=== PATIENT | male | born 1995 | race Caucasian/White ===

== ENCOUNTER 2017-09-10 14:54 | Inpatient (IN) | payer OTHER ==
[~2017-09-10] VITALS: Ht 172.7 cm; Wt 65.8 kg
[2017-09-10 14:55] VITALS: BP 117/64
[2017-09-10 15:22] LABS: HEMATOCRIT 38.3 % (36-52); HEMOGLOBIN 12.5 g/dL (12.0-18.0); MEAN CORPUSCULAR HEMOGLOBIN 28 pg (27-31); MEAN CORPUSCULAR HGB CONC 33 g/dL (33-37); PLATELET COUNT (AUTO) 331 K/uL (140-450); RED BLOOD CELL COUNT(AUTO) 4.46 MIL/uL (4.20-6.10); RED CELL DISTRIBUTION WIDTH 15.4 % (11.6-13.7); WHITE BLOOD COUNT (AUTO) 19.2 K/uL (4.8-10.8)
[2017-09-10] MEDS ORDERED: AMLO5TAB PO (15:26)
[2017-09-10] MEDS ORDERED: TRAZ-286 PO (15:26)
[2017-09-10] MEDS ORDERED: GABA300C PO (15:26)
[2017-09-10] MEDS ORDERED: QUET300T1 PO (15:26)
[2017-09-10] MEDS ORDERED: BUPR-160 PO (15:26)
[2017-09-10] MEDS ORDERED: [UNRECOGNIZED DRUG - CODE] PO (15:26)
[2017-09-10] MEDS ORDERED: DOXY100C9 PO (15:26)
[2017-09-10 15:30] LABS: ANION GAP 19.1 (8-16); CARBON DIOXIDE 22.3 mmol/L (21-32); CHLORIDE 100 mmol/L (98-107); GFR ARICAN-AMERICAN 118 mL/min (>90); GLUCOSE 72 mg/dL (74-106); POTASSIUM 4.4 mmol/L (3.5-5.1); SODIUM SERUM 137 mmol/L (136-145); UREA NITROGEN, BLOOD 24 mg/dL (7-18)
[2017-09-10 15:35] LABS: ALBUMIN 4.2 g/dL (3.4-5.0); ASPARTATE AMINOTRANSFERASE 19 U/L (15-37); TOTAL BILIRUBIN 0.7 mg/dL (0.0-1.0)
[2017-09-10 15:37] LABS: ACETAMINOPHEN < 0.5 ug/ml (10-30); SALICYLATE < 2.8 mg/dL (2.8-20.0)
[2017-09-10 15:42] LABS: LYMPHOCYTES % (MANUAL) 6 % (20-46); MONOCYTES % (MANUAL) 4 % (5-12)
[2017-09-10 15:52] LABS: BARBITURATE, URINE NEG. ng/ml (NEG <=200); BENZODIAZEPINE, URINE NEG. ng/mL (NEG <=200); CANNABINOID, URINE POS. ng/mL (NEG <=50); COCAINE, URINE NEG. ng/mL (NEG <=300); OPIATE, URINE NEG. ng/mL (NEG <=2000); PHENCYCLIDINE SCREEN,URINE NEG. ng/mL (NEG <=25)
[2017-09-10 17:20] LABS: BASOPHILS # (AUTO) 0.1 K/uL (0.00-0.22); BASOPHILS % (AUTO) 0.4 % (0.0-2.0); EOSINOPHILS % (AUTO) 0.1 % (0.0-4.0); HEMATOCRIT 40.2 % (36-52); HEMOGLOBIN 12.9 g/dL (12.0-18.0); LYMPHOCYTES # (AUTO) 1.3 K/uL (2.0-11.5); LYMPHOCYTES % (AUTO) 6.6 % (20.5-51.1); MEAN CORPUSCULAR HEMOGLOBIN 28 pg (27-31); MEAN CORPUSCULAR HGB CONC 32 g/dL (33-37); MEAN CORPUSCULAR VOLUME 86.4 fL (80-94); MONOCYTES # (AUTO) 0.9 K/uL (0.8-1.0); MONOCYTES % (AUTO) 4.8 % (1.7-9.3); NEUTROPHILS % (AUTO) 88.1 % (42.2-75.2); PLATELET COUNT (AUTO) 357 K/uL (140-450); RED BLOOD CELL COUNT(AUTO) 4.65 MIL/uL (4.20-6.10); RED CELL DISTRIBUTION WIDTH 15.3 % (11.6-13.7); WHITE BLOOD COUNT (AUTO) 19.3 K/uL (4.8-10.8)
[2017-09-10] MEDS ORDERED: LORazepam 2 MG/ML VIAL IM/IVP ONE (17:30)
[2017-09-10] MEDS ORDERED: traZODone 50 MG TAB PO PRN (19:00)
[2017-09-10] MEDS ORDERED: ONDANSETRON 4 MG/2 ML VIAL IVP PRN (19:00)
[2017-09-10] MEDS ORDERED: MULTIVITAMIN-12 10 ML, THIAMINE 100 MG, FOLIC ACID 1 MG, MAGNESIUM SULFATE 50% 2,000 MG... IV SCH ×5 (19:10)
[2017-09-10 20:00] VITALS: BP 113/66
[2017-09-10] MEDS: HYDROcodone/APAP 5/325 MG 1 TAB TAB PO PRN (20:47)
[2017-09-10] MEDS: LORazepam 2 MG/ML VIAL IVP PRN (20:48)
[2017-09-10] MEDS ORDERED: MULTIVITAMIN-12 10 ML VIAL IV ONE (21:29)
[2017-09-10] MEDS ORDERED: THIAMINE 200 MG/2 ML VIAL ONE (21:38)
[2017-09-10] MEDS ORDERED: FOLIC ACID 5 MG/ML SYR ONE (21:43)
[2017-09-10] MEDS ORDERED: MAGNESIUM SULFATE 50% 1000 MG/2 ML VIAL IV ONE (21:44)
[2017-09-10 23:18] VITALS: BP 113/66
[2017-09-11] VITALS: BP 106/62
[2017-09-11] MEDS: LORazepam 2 MG/ML VIAL IVP PRN (01:52)
[2017-09-11 04:00] VITALS: BP 110/62
[2017-09-11] MEDS: HYDROcodone/APAP 5/325 MG 1 TAB TAB PO PRN (04:00)
[2017-09-11 06:38] LABS: ANION GAP 9.6 (8-16); CARBON DIOXIDE 27.2 mmol/L (21-32); POTASSIUM 3.8 mmol/L (3.5-5.1)
[2017-09-11 06:39] LABS: ALBUMIN 3.6 g/dL (3.4-5.0); MAGNESIUM 2.5 mg/dL (1.8-2.4); TOTAL BILIRUBIN 0.6 mg/dL (0.0-1.0)
[2017-09-11 06:55] LABS: BASOPHILS # (AUTO) 0.2 K/uL (0.00-0.22); BASOPHILS % (AUTO) 2.4 % (0.0-2.0); EOSINOPHILS # (AUTO) 0.1 K/uL (0-0.4); EOSINOPHILS % (AUTO) 1.4 % (0.0-4.0); HEMATOCRIT 37.5 % (36-52); HEMOGLOBIN 12.9 g/dL (12.0-18.0); LYMPHOCYTES # (AUTO) 1.2 K/uL (2.0-11.5); LYMPHOCYTES % (AUTO) 12.3 % (20.5-51.1); MEAN CORPUSCULAR HEMOGLOBIN 30 pg (27-31); MEAN CORPUSCULAR HGB CONC 34 g/dL (33-37); MEAN CORPUSCULAR VOLUME 86.9 fL (80-94); MONOCYTES # (AUTO) 1.4 K/uL (0.8-1.0); MONOCYTES % (AUTO) 14.1 % (1.7-9.3); NEUTROPHILS # (AUTO) 6.8 K/uL (1.8-7.7); NEUTROPHILS % (AUTO) 69.8 % (42.2-75.2); PLATELET COUNT (AUTO) 301 K/uL (140-450); RED BLOOD CELL COUNT(AUTO) 4.32 MIL/uL (4.20-6.10); RED CELL DISTRIBUTION WIDTH 14.6 % (11.6-13.7); WHITE BLOOD COUNT (AUTO) 9.7 K/uL (4.8-10.8)
[2017-09-11 08:00] VITALS: BP 129/81
[2017-09-11] MEDS: amLODIPine 5 MG TAB PO SCH (08:22)
[2017-09-11] MEDS: risperiDONE 1 MG TAB PO SCH (08:22)
[2017-09-11] MEDS ORDERED: GABAPENTIN 100 MG CAP PO SCH (09:00)
[2017-09-11] MEDS ORDERED: GABAPENTIN 300 MG CAP PO SCH (09:00)
[2017-09-11] MEDS ORDERED: RISPERIDONE 1 MG PO SCH (09:00)
[2017-09-11] MEDS ORDERED: QUEtiapine FUMARATE 100 MG TAB PO SCH ×2 (09:00→21:00)
[2017-09-11] MEDS ORDERED: GABAPENTIN 100 MG CAP PO PRN (09:25)
[2017-09-11 12:00] VITALS: BP 118/77
[2017-09-11] MEDS: LORazepam 1 MG TAB PO PRN (12:40)
[2017-09-11] MEDS ORDERED: traMADol 50 MG TAB PO PRN (14:45)
[2017-09-12] VITALS: BP 112/63
[2017-09-12 07:33] LABS: BASOPHILS # (AUTO) 0.2 K/uL (0.00-0.22); BASOPHILS % (AUTO) 1.6 % (0.0-2.0); EOSINOPHILS # (AUTO) 0.1 K/uL (0-0.4); EOSINOPHILS % (AUTO) 1.1 % (0.0-4.0); HEMATOCRIT 43.1 % (36-52); HEMOGLOBIN 14.1 g/dL (12.0-18.0); LYMPHOCYTES # (AUTO) 1.1 K/uL (2.0-11.5); LYMPHOCYTES % (AUTO) 9.4 % (20.5-51.1); MEAN CORPUSCULAR HEMOGLOBIN 29 pg (27-31); MEAN CORPUSCULAR HGB CONC 33 g/dL (33-37); MEAN CORPUSCULAR VOLUME 87.7 fL (80-94); MONOCYTES # (AUTO) 0.7 K/uL (0.8-1.0); MONOCYTES % (AUTO) 6.5 % (1.7-9.3); NEUTROPHILS # (AUTO) 9.2 K/uL (1.8-7.7); NEUTROPHILS % (AUTO) 81.4 % (42.2-75.2); PLATELET COUNT (AUTO) 322 K/uL (140-450); RED BLOOD CELL COUNT(AUTO) 4.91 MIL/uL (4.20-6.10); RED CELL DISTRIBUTION WIDTH 14.9 % (11.6-13.7); WHITE BLOOD COUNT (AUTO) 11.3 K/uL (4.8-10.8)
[2017-09-12] MEDS: ACETAMINOPHEN 325 MG TAB PO PRN ×2 (07:37→16:02)
[2017-09-12 07:50] LABS: ALBUMIN 4.1 g/dL (3.4-5.0); ANION GAP 15.1 (8-16); CARBON DIOXIDE 24.8 mmol/L (21-32); CREATININE 2.2 mg/dL (0.7-1.3); POTASSIUM 3.9 mmol/L (3.5-5.1); TOTAL BILIRUBIN 0.3 mg/dL (0.0-1.0)
[2017-09-12 08:03] VITALS: BP 117/72
[2017-09-12] MEDS: amLODIPine 5 MG TAB PO SCH ×2 (08:43→09:50)
[2017-09-12] MEDS: risperiDONE 1 MG TAB PO SCH ×2 (08:44→09:50)
[2017-09-12] MEDS: LORazepam 1 MG TAB PO PRN (10:56)
[2017-09-12] MEDS ORDERED: NICOTINE TRANSD SYS 21 MG/24 HR PATCH TD SCH (11:20)
[2017-09-12 12:00] VITALS: BP 103/62
[2017-09-13] MEDS ORDERED: NICOTINE TRANSD SYS 21 MG/24 HR PATCH TD SCH (09:00)
== END 2017-09-12 18:00 | disposition left against medical advice (07) | DRG 770 ==
LOC: MED 14:54 → MTU 18:59
PROVIDERS: ADMIT Hospitalist; ATTEND Hospitalist
DX: F10.129 Alcohol abuse with intoxication, unspecified (principal); R45.851 Suicidal ideations; G62.9 Polyneuropathy, unspecified; F20.0 Paranoid schizophrenia; I10 Essential (primary) hypertension; F15.10 Other stimulant abuse, uncomplicated; F31.9 Bipolar disorder, unspecified; F12.10 Cannabis abuse, uncomplicated; F17.210 Nicotine dependence, cigarettes, uncomplicated; Y90.1 Blood alcohol level of 20-39 mg/100 ml; F41.9 Anxiety disorder, unspecified; D72.828 Other elevated white blood cell count; Z53.21 Procedure and treatment not carried out due to patient leaving prior to being seen by health care provider; Z88.0 Allergy status to penicillin; Z79.899 Other long term (current) drug therapy; Z59.0 Homelessness
CPT/HCPCS: 36415; 80053; 80305; 83735; 84100; 85025; 87081; 93005; 96372; 99285; A9153; G0480; G0482; J2060; J3411; J3475; J3490; J7030

== ENCOUNTER 2017-09-12 21:35 | Inpatient (IN) | payer OTHER ==
[~2017-09-12] VITALS: Ht 165.1 cm; Wt 59.0 kg
[~2017-09-12 21:35] MED LIST: AMLO5TAB PO; BUPR-160 PO; DOXY100C9 PO; GABA300C PO; QUET300T1 PO; TRAZ-286 PO; [UNRECOGNIZED DRUG - CODE] PO
[2017-09-12] MEDS ORDERED: NALOXONE 0.4 MG/ML VIAL ONE (21:38)
[2017-09-12 21:39] VITALS: BP 134/75
[2017-09-12] MEDS ORDERED: ONDANSETRON 4 MG/2 ML VIAL ONE (21:43)
[2017-09-12] MEDS ORDERED: FLUMAZENIL 0.5 MG/5 ML VIAL IVP ONE (21:43)
[2017-09-12] MEDS ORDERED: ONDANSETRON 4 MG/2 ML VIAL IVP ONE (21:45)
[2017-09-12] MEDS ORDERED: NALOXONE 0.4 MG/ML VIAL IVP ONE (21:45)
[2017-09-12] MEDS ORDERED: NACL 0.9% 2,000 ML IV ONE (21:45)
[2017-09-12 21:59] LABS: BASOPHILS # (AUTO) 0.2 K/uL (0.00-0.22); BASOPHILS % (AUTO) 1.3 % (0.0-2.0); EOSINOPHILS % (AUTO) 0.2 % (0.0-4.0); HEMATOCRIT 44.9 % (36-52); HEMOGLOBIN 14.3 g/dL (12.0-18.0); LYMPHOCYTES # (AUTO) 1.3 K/uL (2.0-11.5); LYMPHOCYTES % (AUTO) 8.7 % (20.5-51.1); MEAN CORPUSCULAR HEMOGLOBIN 28 pg (27-31); MEAN CORPUSCULAR HGB CONC 32 g/dL (33-37); MEAN CORPUSCULAR VOLUME 86.9 fL (80-94); MONOCYTES # (AUTO) 0.8 K/uL (0.8-1.0); MONOCYTES % (AUTO) 5.1 % (1.7-9.3); NEUTROPHILS % (AUTO) 84.7 % (42.2-75.2); PLATELET COUNT (AUTO) 339 K/uL (140-450); RED BLOOD CELL COUNT(AUTO) 5.16 MIL/uL (4.20-6.10); RED CELL DISTRIBUTION WIDTH 14.8 % (11.6-13.7); WHITE BLOOD COUNT (AUTO) 15.3 K/uL (4.8-10.8)
[2017-09-12 22:05] LABS: APPEARANCE,URINE CLEAR (CLEAR); BILIRUBIN,URINE NEGATIVE (NEGATIVE); BLOOD, URINE NEGATIVE (NEGATIVE); LEUKOCYTE ESTERASE ,URINE NEGATIVE (NEGATIVE); NITRITE, URINE NEGATIVE (NEGATIVE); PH,URINE 5.5 (5.0-9.0); UGLUCOSE NEGATIVE (NEGATIVE)
[2017-09-12 22:06] LABS: COLOR,URINE STRAW (YELLOW)
[2017-09-12 22:11] LABS: ANION GAP 13.5 (8-16); CARBON DIOXIDE 27.8 mmol/L (21-32); CHLORIDE 106 mmol/L (98-107); CREATININE 1.6 mg/dL (0.7-1.3); GFR ARICAN-AMERICAN 69 mL/min (>90); GLUCOSE 126 mg/dL (74-106); POTASSIUM 3.3 mmol/L (3.5-5.1); SODIUM SERUM 144 mmol/L (136-145); UREA NITROGEN, BLOOD 19 mg/dL (7-18)
[2017-09-12 22:12] LABS: BARBITURATE, URINE NEG. ng/ml (NEG <=200); BENZODIAZEPINE, URINE NEG. ng/mL (NEG <=200); CANNABINOID, URINE NEG. ng/mL (NEG <=50); COCAINE, URINE NEG. ng/mL (NEG <=300); OPIATE, URINE NEG. ng/mL (NEG <=2000); PHENCYCLIDINE SCREEN,URINE NEG. ng/mL (NEG <=25)
[2017-09-12 22:17] LABS: ALBUMIN 4.3 g/dL (3.4-5.0); ASPARTATE AMINOTRANSFERASE 21 U/L (15-37); SALICYLATE 2.8 mg/dL (2.8-20.0); TOTAL BILIRUBIN 0.2 mg/dL (0.0-1.0)
[2017-09-12 22:18] LABS: ACETAMINOPHEN < 0.5 ug/ml (10-30)
[2017-09-12] MEDS ORDERED: NACL 0.9% 1,000 ML IV SCH (22:44)
[2017-09-12] MEDS ORDERED: LORazepam 1 MG TAB PO PRN ×2 (22:45)
[2017-09-12] MEDS ORDERED: ONDANSETRON 4 MG/2 ML VIAL IVP PRN (22:45)
[2017-09-13] MEDS ORDERED: cloNIDine 0.1 MG TAB PO SCH (05:00)
[2017-09-13] MEDS ORDERED: LORazepam 1 MG TAB PO SCH (05:00)
[2017-09-13 06:09] VITALS: BP 97/69
[2017-09-13 07:04] LABS: BASOPHILS # (AUTO) 0.3 K/uL (0.00-0.22); BASOPHILS % (AUTO) 2.2 % (0.0-2.0); EOSINOPHILS # (AUTO) 0.1 K/uL (0-0.4); EOSINOPHILS % (AUTO) 0.6 % (0.0-4.0); HEMATOCRIT 38.6 % (36-52); HEMOGLOBIN 12.7 g/dL (12.0-18.0); LYMPHOCYTES # (AUTO) 1.8 K/uL (2.0-11.5); LYMPHOCYTES % (AUTO) 15.9 % (20.5-51.1); MEAN CORPUSCULAR HEMOGLOBIN 29 pg (27-31); MEAN CORPUSCULAR HGB CONC 33 g/dL (33-37); MEAN CORPUSCULAR VOLUME 87.7 fL (80-94); MONOCYTES # (AUTO) 0.7 K/uL (0.8-1.0); MONOCYTES % (AUTO) 5.7 % (1.7-9.3); NEUTROPHILS # (AUTO) 8.7 K/uL (1.8-7.7); NEUTROPHILS % (AUTO) 75.6 % (42.2-75.2); PLATELET COUNT (AUTO) 268 K/uL (140-450); RED CELL DISTRIBUTION WIDTH 14.5 % (11.6-13.7); WHITE BLOOD COUNT (AUTO) 11.6 K/uL (4.8-10.8)
[2017-09-13 07:40] LABS: ALBUMIN 3.4 g/dL (3.4-5.0); ANION GAP 14.6 (8-16); CARBON DIOXIDE 24.1 mmol/L (21-32); MAGNESIUM 1.7 mg/dL (1.8-2.4); PHOSPHORUS 2.7 mg/dL (2.5-4.9); POTASSIUM 3.7 mmol/L (3.5-5.1); TOTAL BILIRUBIN 0.2 mg/dL (0.0-1.0)
[2017-09-13] MEDS ORDERED: clonazePAM 0.5 MG TAB PO SCH (09:00)
[2017-09-13] MEDS ORDERED: MULTIVITAMIN 1 TAB PO SCH (09:00)
[2017-09-13] MEDS ORDERED: FOLIC ACID 1 MG TAB PO SCH (09:00)
[2017-09-13] MEDS ORDERED: GABAPENTIN 100 MG CAP PO SCH (09:00)
[2017-09-13] MEDS ORDERED: THIAMINE 100 MG TAB PO SCH (09:00)
== END 2017-09-13 07:30 | disposition left against medical advice (07) | DRG 812 ==
LOC: EDBD 21:35 → MED 21:35 → MTU 23:06 → EDUNIT# 23:06 → MTU 23:26
PROVIDERS: ADMIT Hospitalist; ATTEND Hospitalist
DX: T43.621A Poisoning by amphetamines, accidental (unintentional), initial encounter (principal); N17.9 Acute kidney failure, unspecified; F33.1 Major depressive disorder, recurrent, moderate; F10.129 Alcohol abuse with intoxication, unspecified; E87.6 Hypokalemia; F15.129 Other stimulant abuse with intoxication, unspecified; E86.0 Dehydration; F17.200 Nicotine dependence, unspecified, uncomplicated; Z53.21 Procedure and treatment not carried out due to patient leaving prior to being seen by health care provider; Y90.8 Blood alcohol level of 240 mg/100 ml or more; Y92.89 Other specified places as the place of occurrence of the external cause
CPT/HCPCS: 36415; 71045; 80053; 80305; 81003; 83735; 84100; 84484; 85025; 87081; 96361; 96374; 96375; 99285; G0480; G0482; J2310; J2405; J3490; J7042

== ENCOUNTER 2017-09-13 09:08 | Inpatient (IN) | payer OTHER ==
[~2017-09-13] VITALS: Ht 165.1 cm; Wt 65.8 kg
--- NOTE | 2017-09-13 07:00 | NUR ---
PATIENT AWAKE A/OX4, ABLE TO MAKE NEEDS KNOWN , NO S/S OF RESP DISTRESS NOTED NO C/O OF PAIN. ASKING FOR HIS BELONGINGS , GLUE SPRAYER BROUGHT HIS BELONGINGS BUT PATIENT STATED HE HAS A SUITE CASE WHICH WASN'T WITH SECURITY. HE WANTED TO LEAVE EXPLAIN THE HIGH RISK OF LEAVING AMA BUT PT INSISTED AND WAY OUT TO THE DOOR. NOTIFIED HOUSE SISI BAEZA FOLLOWED PATIENT STILL REFUSED TO COME BACK SIGNED AMA REMOVED IV AND PATIENT LEFT THE HOSPITAL.
[2017-09-13 09:10] VITALS: BP 121/79
--- NOTE | 2017-09-13 09:11 | NUR ---
PT TIKIA FOR OVERDOSE TO BED 10
--- NOTE | 2017-09-13 09:18 | NUR ---
22 YO M BIBA AFTER DRUG OVERDOSE. PT REPORTS TO USING METH. DENIES ETOH OR OTHER DRUGS AT THIS TIME. DENIES N/V/D AT THIS TIME. PT A&O X1. GCS14. PT IS VERY CONFUSED, BUT IS SAYING THE RIGHT SIDE OF HIS NECK HURTS. HE IS UNABLE TO GIVE ANYMOE INFORMATION ON THE NECK PAIN. REPORTS THAT HE DOES NOT KNOW WHERE HE IS. PT LEFT AMA FROM [facility] THIS MORNING. PT DOES NOT RECALL EVENT. PT DOES NOT KNOW HIS . PT AWAKE, BUT KEEPS KNODDING OFF. SMALL LACERATION NOTED TO RIGHT FOREARM. LACERATION COVERED IN GAUZE. PT UNAWARE OF WHERE IT CAME FROM, BUT RIGHT HAND IS ALSO BLOODY. BLEEDING CONTROLLED AND NO SIGN OR WRIST OR ARM DEFORMITY NOTED. RESPIRATIONS EVEN AND UNLABORED AT THIS TIME. LUNG SOUNDS BILATERALLY CLEAR AT THIS TIME. SAFETY PRECAUTIONS IN PLACE. ER MD SAL NOTIFIED OF PT STATUS/ PT NEEDS MET AT THIS TIME. WILL CONTINUE TO MONITOR.
--- NOTE | 2017-09-13 09:20 | NUR ---
PT IN BED NEAR NURSES STATION. CURTAIN OPEN SO NURSES/STAFF CAN MONITOR PT STATUS. SAFETY PRECAUTIONS IN PLACE.
--- NOTE | 2017-09-13 09:43 | NUR ---
XRAY AT BEDSIDE.
--- NOTE | 2017-09-13 10:00 | NUR ---
PT RESTING PEACEFULLY HOSPITAL BED AT THIS TIME. VSS. WILL CONTINUE TO MONITOR.
[2017-09-13 10:07] LABS: APPEARANCE,URINE CLEAR (CLEAR); BILIRUBIN,URINE NEGATIVE (NEGATIVE); BLOOD, URINE NEGATIVE (NEGATIVE); COLOR,URINE YELLOW (YELLOW); LEUKOCYTE ESTERASE ,URINE NEGATIVE (NEGATIVE); NITRITE, URINE NEGATIVE (NEGATIVE); UGLUCOSE NEGATIVE (NEGATIVE)
[2017-09-13 10:14] LABS: BARBITURATE, URINE NEG. ng/ml (NEG <=200); BENZODIAZEPINE, URINE NEG. ng/mL (NEG <=200); CANNABINOID, URINE NEG. ng/mL (NEG <=50); COCAINE, URINE NEG. ng/mL (NEG <=300); OPIATE, URINE NEG. ng/mL (NEG <=2000); PHENCYCLIDINE SCREEN,URINE NEG. ng/mL (NEG <=25)
[2017-09-13 10:24] LABS: RBC,URINE 0-5 (RARE) /HPF (0-5); WBC,URINE 0-5 (RARE) /HPF (0-5)
[2017-09-13 10:27] LABS: BASOPHILS # (AUTO) 0.1 K/uL (0.00-0.22); BASOPHILS % (AUTO) 1.2 % (0.0-2.0); EOSINOPHILS % (AUTO) 0.3 % (0.0-4.0); HEMATOCRIT 41.7 % (36-52); HEMOGLOBIN 13.6 g/dL (12.0-18.0); LYMPHOCYTES # (AUTO) 1.4 K/uL (2.0-11.5); LYMPHOCYTES % (AUTO) 11.6 % (20.5-51.1); MEAN CORPUSCULAR HEMOGLOBIN 28 pg (27-31); MEAN CORPUSCULAR HGB CONC 33 g/dL (33-37); MONOCYTES # (AUTO) 0.5 K/uL (0.8-1.0); MONOCYTES % (AUTO) 4.4 % (1.7-9.3); NEUTROPHILS # (AUTO) 9.8 K/uL (1.8-7.7); NEUTROPHILS % (AUTO) 82.5 % (42.2-75.2); PLATELET COUNT (AUTO) 297 K/uL (140-450); RED CELL DISTRIBUTION WIDTH 14.6 % (11.6-13.7); WHITE BLOOD COUNT (AUTO) 11.8 K/uL (4.8-10.8)
--- NOTE | 2017-09-13 10:29 | NUR ---
POISON CONTROL CALLED, TIFFANI WAS SPOKEN TO. PT NOT PRESENTING WITH THE S/S REPORTED BY POISON CONTROL TO MONITOR FOR AT THIS TIME. NO AGITATION OR COMBATIVENESS PRESENT AT THIS TIME. WILL CONTINUE TO MONTIOR.
[2017-09-13 10:46] LABS: ALBUMIN 3.9 g/dL (3.4-5.0); ANION GAP 14.7 (8-16); ASPARTATE AMINOTRANSFERASE 22 U/L (15-37); CHLORIDE 107 mmol/L (98-107); GFR ARICAN-AMERICAN 118 mL/min (>90); GLUCOSE 97 mg/dL (74-106); POTASSIUM 3.7 mmol/L (3.5-5.1); SODIUM SERUM 143 mmol/L (136-145); TOTAL BILIRUBIN 0.2 mg/dL (0.0-1.0); UREA NITROGEN, BLOOD 11 mg/dL (7-18)
[2017-09-13 10:47] LABS: ACETAMINOPHEN < 0.5 ug/ml (10-30); SALICYLATE < 2.8 mg/dL (2.8-20.0)
[2017-09-13] MEDS ORDERED: ONDANSETRON 4 MG/2 ML VIAL IVP PRN (11:25)
[2017-09-13] MEDS ORDERED: ACETAMINOPHEN 325 MG TAB PO PRN (11:25)
--- NOTE | 2017-09-13 11:30 | NUR ---
PT ASLEEP IN THE BED AT THIS TIME. WILL CONTINUE TO MONITOR.
--- NOTE | 2017-09-13 12:19 | NUR ---
PT STILL ASLEEP IN THE BED AT THIS TIME. VSS. WILL CONTINUE TO MONITOR.
--- NOTE | 2017-09-13 13:00 | NUR ---
Patient will be admitted to care of ROSA Villarreal. Admited to tele. Will go to room 105B. Belongings list completed. Pt tolerated transition well.
--- NOTE | 2017-09-13 13:05 | NUR ---
Patient discharged with v/s stable. Written and verbal after care instructions given and explained. Patient alert, oriented and verbalized understanding of instructions. Ambulatory with steady gait. All questions addressed prior to discharge. ID band removed. Patient advised to follow up with PMD. Rx of tramadol and zofran given. Patient educated on indication of medication including possible reaction and side effects. Opportunity to ask questions provided and answered. Addendum: 09/13/17 at 1308 by [facility] MISDOCUMENTED DISCHARGE NOTE. SEE ADMIT NOTE ON THIS PT.
[2017-09-13 13:06] VITALS: BP 129/74
--- NOTE | 2017-09-13 13:45 | NUR ---
RECEIVED PT FROM ER. PT AAOX2, VS STABLE. SKIN INTACT. PT HAS IV ON LEFT FOREARM GAUGE 18. PT AMBULATED TO THE RESTROOM AND VOIDED. PT STATED "I FELT A LITTLE DIZZY". PT PUT IN FALL PRECAUTION. ORIENTED PT TO ROOM AND SURROUNDINGS AND USE OF CALL LIGHT. PT STATED THAT HE HAD A HEADACHE, AND THEN HE STATED "JUST LEAVE ME ALONE, I WANT TO SLEEP". MRSA DONE. WILL CONTINUE TO MONITOR PT.
--- NOTE | 2017-09-13 13:58 | NUR ---
PT IS ON A CLEAR LIQUID DIET AND HAS A BAG OF POTATO CHIPS OPEN. EXPLAINED TO PT THAT HE CAN NOT EAT CHIPS AT THIS MOMENT. CHARGE NURSE REYNOLD STATED "YOU CAN LEAVE THE BAG OF CHIPS IN THE ROOM, IS ALREADY OPEN".
--- NOTE | 2017-09-13 14:00 | NUR ---
PATIENT HAS BEEN SCREENED AND CATEGORIZED LOW NUTRITION RISK. PATIENT WILL BE SEEN WITHIN 7 DAYS OF ADMISSION. 09/19/[address]
[2017-09-13] MEDS: DEXT 5% /NACL 0.9% 1,000 ML IV SCH ×2 (14:09→21:25)
--- NOTE | 2017-09-13 14:15 | NUR ---
PT SLEEPING AT THIS TIME. NO SIGNS OF DISTRESS NOTED. IV FLUIDS INFUSING WELL. WILL CONTINUE TO MONITOR PT.
--- NOTE | 2017-09-13 14:23 | NUR ---
PT IN STABLE CONDITION, SLEEPING AT THIS TIME. ENDORSED PLAN OF CARE TO AIRCRAFT TECHNICIAN ALEM.
--- NOTE | 2017-09-13 14:32 | NUR ---
RECEIVED REPORT FROM ELMA LEE FOR CONTINUITY OF CARE. PT SLEEPING NO DISCOMFORT NOTED , VITALS STABLE WILL CONTINUE TO MONITOR.
--- NOTE | 2017-09-13 16:54 | NUR ---
PATIENT AWAKE ANSWERS YES OR NO QUESTION, REMOVED THE IV LINE AND TELE MONITOR ,BROKE THE JIGSAW OPERATOR STATED HE WANTED TO DRINK IT. FOR SAFETY WE MOVED PATIENT TO 109 BED BE AND WILL CONTINUE TO MONITOR.
--- NOTE | 2017-09-13 18:10 | NUR ---
RECEIVED REPORT AT PT BEDSIDE FROM DAY SHIFT DRY CLEANING MACHINE OPERATOR HELPER, FOR CONTINUITY OF CARE. PATIENT IS AWAKE, WHEN ASKED SOMETHING HE JUST STARES BLANKLY WITHOUT SAYING ANYTHING, HE IS ON ROOM AIR. PT ABLE TO FOLLOW COMMANDS. PT SKIN IS INTACT, WARM AND DRY. PATIENT REMOVED IV AND REFUSED A NEW IV START, SO THERE IS NO IV ACCESS. PT TOOK OFF HEART MONITOR AND REFUSES TO PUT IT BACK ON, RESPIRATIONS EVEN AND UNLABORED. HOB IS SEMI-FOWLERS. DISCUSSED PLAN OF CARE WITH PT, PT VERBALIZED UNDERSTANDING. PT STABLE, NO SIGNS OF DISTRESS NOTED AT THIS TIME. BED IN LOWEST POSITION, CALL LIGHT WITHIN REACH. WILL CONTINUE TO MONITOR PATIENT.
[2017-09-13 20:00] VITALS: BP 110/55
[2017-09-13] MEDS: buPROPion 150 MG TABER PO SCH (21:25)
[2017-09-13] MEDS: LORazepam 2 MG/ML VIAL IVP PRN (21:36)
--- NOTE | 2017-09-13 21:40 | NUR ---
ALSO STARTED IV AND GAVE ATIVAN IVP PER ORDER FOR ANXIETY, PT TOLERATED WELL. PT AGREED TO NOT PULL OUT IV ANYMORE.
--- NOTE | 2017-09-13 21:40 | NUR ---
ADMINISTERED SCHEDULED MEDICATIONS, PT TOLERATED WELL.
--- NOTE | 2017-09-13 22:45 | NUR ---
PT REQUESTING SEROQUEL, TOLD PT SEROQUEL WAS NOT ORDERED BUT THE ATIVAN THAT WAS GIVEN TO HIM FOR ANXIETY WILL HELP HIM SLEEP TOO.
[2017-09-14] VITALS: BP 102/57
--- NOTE | 2017-09-14 | NUR ---
VITAL SIGNS WITHIN NORMAL LIMITS. PT SLEEPING, EASILY AROUSABLE. PT STABLE, NO SIGNS OF DISTRESS NOTED AT THIS TIME. BED IN LOWEST POSITION, CALL LIGHT WITHIN REACH. WILL CONTINUE TO MONITOR PATIENT. 1:1 SITTER STILL PRESENT.
[2017-09-14 04:00] VITALS: BP 115/73
--- NOTE | 2017-09-14 04:00 | NUR ---
VITAL SIGNS WITHIN NORMAL LIMITS. PT STABLE, NO SIGNS OF DISTRESS NOTED AT THIS TIME. BED IN LOWEST POSITION, CALL LIGHT WITHIN REACH. WILL CONTINUE TO MONITOR PATIENT.
[2017-09-14] MEDS: DEXT 5% /NACL 0.9% 1,000 ML IV SCH (07:25)
--- NOTE | 2017-09-14 07:30 | NUR ---
ENDORSED PT TO DAY SHIFT RN FOR CONTINUITY OF CARE. PT IN STABLE CONDITION.
--- NOTE | 2017-09-14 07:31 | NUR ---
RECEIVED REPORT FROM AUTO TECH NURSE. PATIENT LYING IN BED SLEEPING, AROUSABLE BY VOICE. NO DISTRESS NOTED. DENIES ANY PAIN AT THIS TIME. AAOX3, CALM, COOPERATIVE, SKIN COLOR APPROPRIATE TO ETHNICITY, WARM TO TOUCH. SKIN IS INTACT. LUNGS CTA ON ALL LOBES. ABDOMEN SOFT, NON-DISTENDED. IV SITE INTACT, PATENT, AND ON SALINE LOCK AT THIS TIME DUE TO PATIENT REFUSING IVF. REVIEWED PLAN OF CARE WITH PATIENT. PATIENT VERBALIZED UNDERSTANDING. SAFETY MEASURES IN PLACE, 1:1 SITTER AT BEDSIDE. WILL CONTINUE TO MONITOR.
[2017-09-14 07:50] LABS: ALBUMIN 3.8 g/dL (3.4-5.0); ANION GAP 13.5 (8-16); CARBON DIOXIDE 26.5 mmol/L (21-32); CREATININE 1.1 mg/dL (0.7-1.3); MAGNESIUM 1.9 mg/dL (1.8-2.4); TOTAL BILIRUBIN 0.3 mg/dL (0.0-1.0)
[2017-09-14 07:55] LABS: BASOPHILS # (AUTO) 0.1 K/uL (0.00-0.22); BASOPHILS % (AUTO) 1.3 % (0.0-2.0); EOSINOPHILS # (AUTO) 0.1 K/uL (0-0.4); EOSINOPHILS % (AUTO) 1.8 % (0.0-4.0); HEMATOCRIT 42.2 % (36-52); HEMOGLOBIN 13.6 g/dL (12.0-18.0); LYMPHOCYTES # (AUTO) 1.8 K/uL (2.0-11.5); LYMPHOCYTES % (AUTO) 29.1 % (20.5-51.1); MEAN CORPUSCULAR HEMOGLOBIN 28 pg (27-31); MEAN CORPUSCULAR HGB CONC 32 g/dL (33-37); MEAN CORPUSCULAR VOLUME 86.9 fL (80-94); MONOCYTES # (AUTO) 0.5 K/uL (0.8-1.0); MONOCYTES % (AUTO) 8.4 % (1.7-9.3); NEUTROPHILS # (AUTO) 3.7 K/uL (1.8-7.7); NEUTROPHILS % (AUTO) 59.4 % (42.2-75.2); PLATELET COUNT (AUTO) 288 K/uL (140-450); RED BLOOD CELL COUNT(AUTO) 4.86 MIL/uL (4.20-6.10); RED CELL DISTRIBUTION WIDTH 15.7 % (11.6-13.7); WHITE BLOOD COUNT (AUTO) 6.3 K/uL (4.8-10.8)
[2017-09-14 08:00] VITALS: BP 133/82
--- NOTE | 2017-09-14 08:41 | NUR ---
PATIENT WISHES TO LEAVE AMA. DOES NOT WANT TO WAIT FOR PSYCH CONSULTATION BECAUSE THEY USUALLY COME AT NIGHTTIME PER PREVIOUS TIME HE WAS HERE AT THE HOSPITAL WHERE PATIENT GOT UPSET BECAUSE PSYCH CONSULT CAME VERY LATE IN THE DAY. REPORTS THAT HE CAN CALL [facility] FOR A RIDE TO [facility] IF HE GETS RELEASED EARLY. DR. PETERS PAGED AND NOTIFIED. DR. PETERS TO COME IN FROM ICU TO TALK TO PATIENT SOON. WILL CONTINUE TO MONITOR.
[2017-09-14] MEDS ORDERED: amLODIPine 5 MG TAB PO SCH (09:00)
[2017-09-14] MEDS ORDERED: BUPROPION HCL PO SCH (09:00)
[2017-09-14] MEDS: buPROPion 150 MG TABER PO SCH (09:00)
[2017-09-14] MEDS: QUEtiapine FUMARATE 100 MG TAB PO SCH ×2 (09:00→13:27)
[2017-09-14] MEDS ORDERED: risperiDONE 1 MG TAB PO SCH (09:00)
[2017-09-14] MEDS ORDERED: RISPERIDONE 1 MG PO SCH (09:00)
--- NOTE | 2017-09-14 09:15 | NUR ---
DR. PETERS AT BEDSIDE REVIEWING PLAN OF CARE WITH PATIENT. WILL CONTINUE TO MONITOR.
--- NOTE | 2017-09-14 10:33 | NUR ---
PATIENT SITTING IN BED. NO DISTRESS NOTED. DENIES ANY PAIN. CONTINUES TO REFUSE MORNING MEDICATIONS AND IV FLUIDS. SAFETY MEASURES IN PLACE, 1:1 SITTER AT BEDSIDE. WILL CONTINUE TO MONITOR.
[2017-09-14 12:00] VITALS: BP 131/80
[2017-09-14 12:31] LABS: FOLIC ACID 7.1 ng/mL (>3.0)
[2017-09-14] MEDS: LORazepam 2 MG/ML VIAL IVP PRN (12:52)
--- NOTE | 2017-09-14 12:55 | NUR ---
PATIENT SITTING IN BED WITH A FINISHED LUNCH TRAY. REPORTS FEELING ANXIOUS. ATIVAN GIVEN PER ORDERS. NO DISTRESS NOTED. DENIES ANY PAIN. WILL CONTINUE TO MONITOR.
--- NOTE | 2017-09-14 13:18 | NUR ---
PATIENT WISHES TO TAKE SEROQUEL MORNING MEDICATION THAT HE REFUSED EARLIER. CONTINUES TO REFUSE THE OTHER MORNING MEDICATIONS, BUT OK TO TAKE SEROQUEL. SEROQUEL ADMINISTERED. SAFETY MEASURES IN PLACE, 1:1 SITTER AT BEDSIDE. WILL CONTINUE TO MONITOR.
--- NOTE | 2017-09-14 14:30 | NUR ---
CM NOTE FAXED INITIAL REVIEW TO [facility] / FAX# [phone], ATTN: KITTY [phone].
--- NOTE | 2017-09-14 15:00 | NUR ---
DR. WONG AT BEDSIDE REVIEWING PLAN OF CARE WITH PATIENT AND PERFORMING PSYCH CONSULT. WILL CONTINUE TO MONITOR.
--- NOTE | 2017-09-14 15:30 | NUR ---
DR. WONG CLEARED PATIENT TO BE DISCHARGED. PATIENT WANTS TO ARRANGE OWN PLACE TO BE DISCHARGED TO. PATIENT SAYS HE WANTS TO GO TO [facility] AND NEEDS A BUS PASS. DR. PETERS PAGED AND NOTIFIED OF DR. WONG CLEARED BY PSYCH. DR. PETERS CLEARED PATIENT TO GO HOME WITH CONTINUING OF ALL HOME MEDS. WILL CONTINUE TO MONITOR.
--- NOTE | 2017-09-14 17:00 | NUR ---
PROVIDED DISCHARGE INSTRUCTIONS TO PATIENT, COMMUNITY [employer]OURCES, HOMELESS PACKET, ALCOHOL ABUSE PACKET, AND MENTAL HEALTH PACKET. PATIENT VERBALIZED UNDERSTANDING AND SIGNED HOMELESS WAIVER FORM. FOLLOW-UP INSTRUCTIONS REGARDING PCP, DIET REGIMEN, AND MEDICATION REGIMEN PROVIDED. ANSWERED ALL OF PATIENT'S QUESTIONS REGARDING DISCHARGE. PATIENT VERBALIZED COMPLETE UNDERSTANDING. ALL BELONGINGS WITH PATIENT. PATIENT ALL DRESSED UP AND READY TO GO TO [facility] VIA PUBLIC TRANSPORT WITH BUS. ALL DISCHARGE INSTRUCTIONS PROVIDED IN PATIENT'S PREFFERED LANGUAGE OF FRENCH. ESCORTED PATIENT DOWN TO LOBBY VIA STABLE AMBULATION. PATIENT DISCHARGED AT THIS TIME VIA PUBLIC VEHICLE IN STABLE CONDITION.
== END 2017-09-14 17:05 | disposition home or self-care (01) | DRG 812 ==
LOC: MED 09:08 → MTU 11:22
PROVIDERS: ADMIT Hospitalist; ATTEND Hospitalist
DX: T42.6X2A Poisoning by other antiepileptic and sedative-hypnotic drugs, intentional self-harm, initial encounter (principal); G93.40 Encephalopathy, unspecified; G62.9 Polyneuropathy, unspecified; F20.0 Paranoid schizophrenia; F15.10 Other stimulant abuse, uncomplicated; F12.10 Cannabis abuse, uncomplicated; Z88.0 Allergy status to penicillin; F17.210 Nicotine dependence, cigarettes, uncomplicated; F41.0 Panic disorder [episodic paroxysmal anxiety]; I10 Essential (primary) hypertension; Z59.0 Homelessness; T42.8X2A Poisoning by antiparkinsonism drugs and other central muscle-tone depressants, intentional self-harm, initial encounter; T46.1X2A Poisoning by calcium-channel blockers, intentional self-harm, initial encounter; Y92.89 Other specified places as the place of occurrence of the external cause; F10.129 Alcohol abuse with intoxication, unspecified; Y90.7 Blood alcohol level of 200-239 mg/100 ml; F19.10 Other psychoactive substance abuse, uncomplicated; N19 Unspecified kidney failure
CPT/HCPCS: 36415; 80053; 80305; 81001; 82550; 82607; 82746; 83735; 84484; 85025; 87081; 93005; 99285; G0480; G0482; J2060